=== PATIENT | male | born 1945 | race Caucasian/White ===

== ENCOUNTER 2017-06-21 05:36 | Day surgery (SDC) | payer MEDICARE, OTHER ==
[2017-06-17 14:08] VITALS: BP 111/69
[~2017-06-21] VITALS: Ht 180.3 cm; Wt 83.7 kg
[~2017-06-21 05:36] MED LIST: Will bring list DOS
[2017-06-21] MEDS ORDERED: LACTATED RINGERS 1,000 ML IV SCH (06:11)
[2017-06-21 06:16] VITALS: BP 111/69
[2017-06-21] MEDS ORDERED: FENTANYL PF 100 MCG/2ML ONE ×2 (06:22→07:24)
[2017-06-21] MEDS ORDERED: MIDAZOLAM 1 MG/ML, 2ML ONE (06:22)
[2017-06-21] MEDS ORDERED: PROPOFOL 10 MG/ML, 20ML ONE (06:23)
[2017-06-21] MEDS ORDERED: GABAPENTIN 300 MG CAPSULE PO ONE (06:30)
[2017-06-21] MEDS ORDERED: OxyconTIN ER 10 MG TAB.ER PO SCH (06:30)
[2017-06-21] MEDS ORDERED: ACETAMINOPHEN 500 MG TABLET PO ONE (06:30)
[2017-06-21] MEDS ORDERED: LIDOCAINE 1%, 2ML SQ PRN (06:30)
[2017-06-21] MEDS ORDERED: ATEN50TA41 PO (06:49)
[2017-06-21 07:05] LABS: BLOOD UREA NITROGEN 9 mg/dL (7-18)
[2017-06-21 07:09] LABS: ASPARTATE AMINO TRANSFERASE 14 U/L (15-37)
[2017-06-21] MEDS: FENTANYL PF 100 MCG/2ML IV PRN ×2 (07:26→07:36)
[2017-06-21] MEDS ORDERED: PROMETHAZINE 25 MG/ML, 1ML IV PRN (07:30)
[2017-06-21] MEDS ORDERED: LABETALOL 5MG/ML, 20ML IV PRN (07:30)
[2017-06-21] MEDS ORDERED: HYDROmorphone 1 MG/ML, 1ML IV PRN (07:30)
[2017-06-21] MEDS ORDERED: LORazepam 2 MG/ML, 1ML IVPush PRN (07:30)
[2017-06-21] MEDS ORDERED: ALBUTEROL/IPRATROPIUM 2.5MG/0.5MG, 3 ML NPPB PRN (07:30)
[2017-06-21] MEDS ORDERED: MIDAZOLAM 1 MG/ML, 2ML IV PRN (07:30)
[2017-06-21] MEDS ORDERED: hydrALAzine 20 MG/ML, 1ML IV PRN (07:30)
[2017-06-21] MEDS ORDERED: ONDANSETRON 2MG/ML, 2ML IVPush PRN (07:30)
[2017-06-21] MEDS ORDERED: OXYcodone 5 MG/5 ML ORAL.SOL UDC PO PRN (07:30)
[2017-06-21] MEDS ORDERED: BUPIVACAINE/PF 0.25% ONE (08:11)
[2017-06-21] MEDS ORDERED: GLIP5TAB10 PO (09:29)
[2017-06-21] MEDS ORDERED: ROSU10TA PO (09:29)
[2017-06-21] MEDS ORDERED: ISOS30TA21 PO (09:29)
[2017-06-21] MEDS ORDERED: METFORMIN PO (09:29)
[2017-06-21] MEDS ORDERED: ACET-1600 PO (09:29)
[2017-06-21] MEDS ORDERED: DIAZ5TAB4 PO (09:29)
[2017-06-21] MEDS ORDERED: ALLO300T PO (09:29)
[2017-06-21] MEDS ORDERED: APIX5TAB PO (09:29)
[2017-06-21] MEDS ORDERED: ONDA4TAB12 PO (09:29)
[2017-06-21] MEDS ORDERED: SYMBICORT INH (09:29)
[2017-06-21] MEDS ORDERED: LOSA50TA6 PO (09:29)
[2017-06-21] MEDS ORDERED: FINA5TAB4 PO (09:29)
[2017-06-21] MEDS ORDERED: OXYC5CAP2 PO (09:29)
[2017-06-21] MEDS ORDERED: TAMS0.4C2 PO (09:29)
[2017-06-21] MEDS ORDERED: ALBUTEROL INH (09:29)
== END 2017-06-21 08:30 | disposition home or self-care (01) ==
LOC: OUT 05:36
PROVIDERS: ATTEND Orthopaedic Surgery
DX: M24.662 Ankylosis, left knee (principal); E11.9 Type 2 diabetes mellitus without complications; Z96.652 Presence of left artificial knee joint; Z98.890 Other specified postprocedural states; Z98.52 Vasectomy status; Z87.39 Personal history of other diseases of the musculoskeletal system and connective tissue
CPT/HCPCS: 27570; 36415; 73560; 80053; 82962; 93005; J2250; J2704; J3010; J3490; J7120